=== PATIENT | male | born 1990 | race Caucasian/White ===

== ENCOUNTER 2021-08-01 00:48 | Emergency (ER) | payer OTHER, SELFPAY ==
[2021-08-01] MEDS ORDERED: LIDOCAINE 2% W/EPI 1:200,000 MPF 20 ML VIAL IM ONE (01:45)
--- NOTE | 2021-08-01 01:55 | ER ---
Nurse's Notes [facility] Name: Amado Coelho Age: 31 yrs Sex: Male : 1990 Arrival Date: 08/01/2021 Time: 00:56 Bed 13 Private MD: Diagnosis: Laceration without foreign body, right foot Presentation: 08/01 01:03 Chief complaint: Patient states: knife slipped and got cut on the inside of right foot, em minimal bleeding noted, about 2-3 cm laceration noted to medial side of right foot. Coronavirus screen: Vaccine status: Patient reports receiving the 2nd dose of the covid vaccine. Ebola Screen: Patient negative for fever greater than or equal to 101.5 degrees Fahrenheit, and additional compatible Ebola Virus Disease symptoms Patient denies exposure to infectious person. Patient denies travel to an Ebola-affected area in the 21 days before illness onset. No symptoms or risks identified at this time. Initial Sepsis Screen: Does the patient meet any 2 criteria? No. Patient's initial sepsis screen is negative. Does the patient have a suspected source of infection? No. Patient's initial sepsis screen is negative. Risk Assessment: Do you want to hurt yourself or someone else? Patient reports no desire to harm self or others. Onset of symptoms was August 01, 2021. 01:03 Method Of Arrival: Wheelchair em 01:03 Acuity: ARELY 4 em 01:16 Complicating Factors: There are no complicating factors for this patient. cc4 Historical: - Allergies: 01:05 No Known Allergies; em - PMHx: 01:05 None; em - PSHx: 01:05 back; em - Immunization history:: Last tetanus immunization: unknown. - Social history:: Smoking status: Patient denies any tobacco usage or history of. Screenin:16 Abuse screen: Denies threats or abuse. Nutritional screening: No deficits noted. cc4 Tuberculosis screening: No symptoms or risk factors identified. Fall Risk None identified. Assessment: 01:16 General: Appears in no apparent distress. Behavior is calm, cooperative. Pain: cc4 Complains of pain in right leg Pain currently is 1 out of 10 on a pain scale. 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 Musculoskeletal: Reports "Little pain" of right ankle laceration from knife. 01:45 Reassessment: No changes from previously documented assessment. Dr maravilla in \\T\\ cc4 bedside with 1 cm laceration right medial ankle repaired with 5-0 prolene sutures x 6, hanh well. 01:45 Injury Description: Laceration is clean, 0.5 to 2.5 cm long. cc4 02:00 Reassessment: Patient appears in no apparent distress at this time. Repaired right cc4 ankle laceration dressed with triple antibiotic ointment, sterile telfa, 4 x 4's and cling gauze with no bleeding noted, hanh. well. Vital Signs: 01:03 BP 159 / 97; Pulse 67; Resp 18; Temp 98.9; Pulse Ox 99% on R/A; Weight 108.86 kg; em Height 6 ft. 3 in. (190.50 cm); Pain 7/10; 01:16 BP 124 / 75; Pulse 93; Resp 20; Temp 98.1; Pulse Ox 96% on R/A; cc4 02:10 BP 135 / 80; Pulse 88; Resp 20; Temp 98.0(O); Pulse Ox 99% on R/A; cc4 01:03 Body Mass Index 30.00 (108.86 kg, 190.50 cm) em ED Course: 00:56 Patient arrived in ED. 01:05 Triage completed. em 01:05 Arm band placed on. em 01:16 Patient has correct armband on for positive identification. Bed in low position. Call cc4 light in reach. Side rails up X 1. 01:22 April Zamudio RN is Primary Nurse. cc4 01:34 Jose Maravilla MD is Attending Physician. [facility] 01:45 Assist provider with laceration repair on right leg and right foot Right medial ankle. cc4 02:10 Patient did not have IV access during this emergency room visit. cc4 Administered Medications: 01:45 Drug: Lidocaine (1 %) 5 ml Volume: 20 ml; Route: Infiltration; cc4 02:10 Follow up: Response: No adverse reaction cc4 02:00 Drug: Neosporin (dyznrnrv-sjvwcxsaco-tzfnwbeeb) Ointment 1 application Route: Topical; cc4 Site: affected area; 02:10 Follow up: Response: No adverse reaction cc4 02:05 Drug: Motrin (ibuprofen) 600 mg Route: PO; cc4 02:10 Follow up: Response: No adverse reaction cc4 02:05 Drug: KeFLEX (cephalexin) 500 mg Route: PO; cc4 02:10 Follow up: Response: No adverse reaction cc4 02:05 Drug: Tetanus-Diphtheria Toxoid Adult 0.5 ml {[employer]ane [employer]: [employer]. Exp: cc4 01/20/2023. Lot #: [id number]. } Route: IM; Site: left deltoid; 02:10 Follow up: Response: No adverse reaction cc4 Outcome: 01:16 Condition: stable cc4 01:55 Discharge ordered by . linda 02:10 Discharged to home via wheelchair, with significant other. cc4 02:10 Condition: stable 02:10 Discharge instructions given to patient, Instructed on discharge instructions, follow up and referral plans. medication usage, wound care, Demonstrated understanding of instructions, follow-up care, medications, wound care, Prescriptions given X 2. 02:43 Patient left the ED. cc4 Signatures: Jose Maravilla MD MD cha Munoz, Edgar, RN RN Lola Mcneill Christie, RN RN cc4
--- NOTE | 2021-08-01 01:55 | EDPHYS ---
Physician Documentation [facility] Name: Amado Coelho Age: 31 yrs Sex: Male : 1990 Arrival Date: 08/01/2021 Time: 00:56 Bed 13 Private MD: DAO Physician Jose Maravilla HPI: 08/01 01:51 This 31 yrs old Male presents to ER via Wheelchair with complaints of linda Laceration To Foot. 01:51 The patient has a laceration related to: dropped knife. The laceration(s) is(are) linda located on the right medial malleolus and right Achilles. Onset: The symptoms/episode began/occurred just prior to arrival. Associated signs and symptoms: The patient has no apparent associated signs or symptoms. The patient has not experienced similar symptoms in the past. Historical: - Allergies: 01:05 No Known Allergies; em - PMHx: 01:05 None; em - PSHx: 01:05 back; em - Immunization history:: Last tetanus immunization: unknown. - Social history:: Smoking status: Patient denies any tobacco usage or history of. ROS: 01:52 Constitutional: Negative for fever, chills, and weight loss, Eyes: Negative for injury, linda pain, redness, and discharge, ENT: Negative for injury, pain, and discharge, Neck: Negative for injury, pain, and swelling, Cardiovascular: Negative for chest pain, palpitations, and edema, Respiratory: Negative for shortness of breath, cough, wheezing, and pleuritic chest pain, Abdomen/GI: Negative for abdominal pain, nausea, vomiting, diarrhea, and constipation, Back: Negative for injury and pain, : Negative for injury, bleeding, discharge, and swelling, Skin: Negative for injury, rash, and discoloration, Neuro: Negative for headache, weakness, numbness, tingling, and seizure, Psych: Negative for depression, anxiety, suicide ideation, homicidal ideation, and hallucinations, Allergy/Immunology: Negative for hives, rash, and allergies, Endocrine: Negative for neck swelling, polydipsia, polyuria, polyphagia, and marked weight changes, Hematologic/Lymphatic: Negative for swollen nodes, abnormal bleeding, and unusual bruising. 01:52 MS/extremity: Positive for laceration, of the right medial malleolus and right Achilles. Exam: 01:52 Constitutional: This is a well developed, well nourished patient who is awake, alert, linda and in no acute distress. Head/Face: Normocephalic, atraumatic. Eyes: Pupils equal round and reactive to light, extra-ocular motions intact. Lids and lashes normal. Conjunctiva and sclera are non-icteric and not injected. Cornea within normal limits. Periorbital areas with no swelling, redness, or edema. ENT: Nares patent. No nasal discharge, no septal abnormalities noted. Tympanic membranes are normal and external auditory canals are clear. Oropharynx with no redness, swelling, or masses, exudates, or evidence of obstruction, uvula midline. Mucous membranes moist. Neck: Trachea midline, no thyromegaly or masses palpated, and no cervical lymphadenopathy. Supple, full range of motion without nuchal rigidity, or vertebral point tenderness. No Meningismus. Chest/axilla: Normal chest wall appearance and motion. Nontender with no deformity. No lesions are appreciated. Cardiovascular: Regular rate and rhythm with a normal S1 and S2. No gallops, murmurs, or rubs. Normal PMI, no JVD. No pulse deficits. Respiratory: Lungs have equal breath sounds bilaterally, clear to auscultation and percussion. No rales, rhonchi or wheezes noted. No increased work of breathing, no retractions or nasal flaring. Abdomen/GI: Soft, non-tender, with normal bowel sounds. No distension or tympany. No guarding or rebound. No evidence of tenderness throughout. Back: No spinal tenderness. No costovertebral tenderness. Full range of motion. Male : Normal genitalia with no discharge or lesions. Skin: Warm, dry with normal turgor. Normal color with no rashes, no lesions, and no evidence of cellulitis. Neuro: Awake and alert, GCS 15, oriented to person, place, time, and situation. Cranial nerves II-XII grossly intact. Motor strength 5/5 in all extremities. Sensory grossly intact. Cerebellar exam normal. Normal gait. Psych: Awake, alert, with orientation to person, place and time. Behavior, mood, and affect are within normal limits. 01:52 Musculoskeletal/extremity: Extremities: grossly normal except: noted in the right medial malleolus and right Achilles: laceration, ROM: intact in all extremities, Circulation is intact in all extremities. Sensation intact. Compartment Syndrome exam of affected extremity: is normal. Vital Signs: 01:03 BP 159 / 97; Pulse 67; Resp 18; Temp 98.9; Pulse Ox 99% on R/A; Weight 108.86 kg; em Height 6 ft. 3 in. (190.50 cm); Pain 7/10; 01:16 BP 124 / 75; Pulse 93; Resp 20; Temp 98.1; Pulse Ox 96% on R/A; cc4 02:10 BP 135 / 80; Pulse 88; Resp 20; Temp 98.0(O); Pulse Ox 99% on R/A; cc4 01:03 Body Mass Index 30.00 (108.86 kg, 190.50 cm) em Laceration: 01:52 Wound Repair of 3cm ( 1.2in ) subcutaneous laceration to right medial malleolus. linda Irregularly shaped.. Distal neuro/vascular/tendon intact. Anesthesia: Local anesthetic administered with 8 mls of 1% lidocaine. Wound prep: Moderate cleansing with betadine by me. Skin closed with 4 5-0 Prolene using vertical mattress sutures and sterile technique. Dressed with Neosporin, pressure dressing. Patient tolerated well. MDM: 01:34 Patient medically screened. linda 01:55 Differential diagnosis: superficial laceration, foreign body. Data reviewed: vital linda signs, nurses notes. Data interpreted: surveillance system monitor: not applicable for this patient encounter. rate is 93 beats/min, rhythm is regular, Pulse oximetry: on room air is 96 %. Counseling: I had a detailed discussion with the patient and/or guardian regarding: the historical points, exam findings, and any diagnostic results supporting the discharge/admit diagnosis, lab results, radiology results, the need for outpatient follow up, for definitive care, 08/01 01:51 Order name: Dressing - Wound; Complete Time: 02:04 [facility] 08/01 01:51 Order name: Gloves, Sterile; Complete Time: 02:04 linda 08/01 01:51 Order name: Prolene, Sutures; Complete Time: 02:04 linda 08/01 01:51 Order name: Setup Suture Tray; Complete Time: 02:04 linda Administered Medications: 01:45 Drug: Lidocaine (1 %) 5 ml Volume: 20 ml; Route: Infiltration; cc4 02:10 Follow up: Response: No adverse reaction cc4 02:00 Drug: Neosporin (vysfnnjx-hylsgroyfs-wmqlqtphg) Ointment 1 application Route: Topical; cc4 Site: affected area; 02:10 Follow up: Response: No adverse reaction cc4 02:05 Drug: Motrin (ibuprofen) 600 mg Route: PO; cc4 02:10 Follow up: Response: No adverse reaction cc4 02:05 Drug: KeFLEX (cephalexin) 500 mg Route: PO; cc4 02:10 Follow up: Response: No adverse reaction cc4 02:05 Drug: Tetanus-Diphtheria Toxoid Adult 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 Exp: cc4 01/20/2023. Lot #: [id number]. } Route: IM; Site: left deltoid; 02:10 Follow up: Response: No adverse reaction cc4 Disposition Summary: 08/01/21 01:55 Discharge Ordered Location: Home linda Problem: new linda Symptoms: have improved linda Condition: Stable linda Diagnosis - Laceration without foreign body, right foot linda Followup: linda - With: Private Physician - When: 7 - 10 days - Reason: Recheck today's complaints, Staple/Suture removal, Re-evaluation by your physician Discharge Instructions: - Discharge Summary Sheet linda - Laceration Care, Adult linda - Laceration Care, Adult, [id number] [facility] Forms: - Medication Reconciliation Form [facility] - Thank You Letter linda - Antibiotic Education linda - Prescription Opioid Use [facility] Prescriptions: - Neosporin (wei-fij-wrxxc) - apply 1 application by TOPICAL route 3-4 times daily; 15 gram; Refills: 0, [facility] Product Selection Permitted - Cephalexin 500 mg Oral Capsule - take 1 capsule by ORAL route every 6 hours for 7 days; 28 capsule; Refills: 0, [facility] Product Selection Permitted Signatures: Jose Maravilla MD MD cha Munoz, Edgar RN RN April Raines RN RN cc4
[2021-08-01] MEDS ORDERED: TETANUS & DIPHTHERIA TOX,ADULT 0.5 ML VIAL ONE (02:06)
[2021-08-01] MEDS ORDERED: CEPHALEXIN 250 MG CAP ONE (02:31)
[2021-08-01] MEDS ORDERED: IBUPROFEN 400 MG TAB ONE (02:32)
[2021-08-01] MEDS ORDERED: IBUPROFEN 200 MG TAB PO ONE (02:32)
[2021-08-01 03:24] VITALS: BP 135/80; TEMP 98; O2SAT 99
== END 2021-08-01 02:43 | disposition home or self-care (01) ==
LOC: ER 00:48
PROC: 0JQQ0ZZ Repair Right Foot Subcutaneous Tissue and Fascia, Open Approach (ICD-10-PCS; principal; 2021-08-01)
DX: S91.311A Laceration without foreign body, right foot, initial encounter (principal); W26.0XXA Contact with knife, initial encounter; Z23 Encounter for immunization
CPT/HCPCS: 90471; 90714; 99283